=== PATIENT | male | born 2000 | race Caucasian/White ===

== ENCOUNTER 2024-02-16 15:31 | Outpatient (AMB) | payer OTHER, SELFPAY ==
--- NOTE | 2024-02-16 15:41 | A.OFFPC_ITS ---
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 He is accompanied by his , Eileen. Patient is originally from the [facility] [place]. 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 Patient reports his father had an CA age 54 this year. Patient tells me his father does not take care of his health. States his father is a smoker and type 2 diabetic who does not take his medication. Patient denies chest pain, shortness of breath. Denies other family members with history of cardiovascular disease and denies family history of sudden . Patient has yearly physicals for sports and has never been diagnosed with a heart condition. The patient is a nonsmoker. His only health concern today is a recurrent pain right hand. He has had this for a few years. 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 The pain is on the outside of the right wrist and travels up the side of the thumb. It bothers him when grasps things. He takes Tylenol which temporarily alleviate symptoms. I recommend he schedule a routine eye exam, and he is in the process of establishing dental care. Declines flu vaccine. States Tdap is UTD. He has a copy of his vaccines at home that he will get to us. ROS: Constitutional: No unexplained weight loss, fever, chills, fatigue or night sweats. Eyes: No vision changes, blurry vision, double vision, eye pain, eye redness, eye discharge. ENT: No hearing loss, sore throat or ear pain. Patient endorses nasal congestion the last few days due to a cold. Respiratory: No shortness of breath, cough or sputum production. Cardiovascular: No chest pain, chest pressure or chest discomfort. No palpitations or pedal edema. Gastrointestinal: No anorexia, nausea, vomiting or diarrhea. No abdominal pain or blood in stool. Genitourinary: No dysuria, hematuria, urinary frequency. No testicular mass reported by patient on home exam, no urethral discharge, no pain. Neurologic: No headache, dizziness, syncope, unilateral weakness, ataxia, numbness or tingling in the extremities. Musculoskeletal: see HPI Hematologic/Lymphatics: No bleeding or bruising. No painful lymph nodes. Skin: No rash or itching. Endocrine: No cold or heat intolerance. No polyuria or polydipsia. Psychiatric: No depression or anxiety. No SI/HI. Physical exam: Constitutional: Alert, in no distress. Head: Normocephalic. Eyes: Pupils are equal, round and reactive to light. Extraocular muscles intact. Ear, Nose and Throat: Canals clear. TMs normal. Normal nasal mucosa. No nasal discharge. No oral lesions. Neck: Supple, Full range of motion. No lymphadenopathy. No palpable thyroid masses. Respiratory: Clear to auscultation. Cardiovascular: S1 S2 regular. No murmurs. Gastrointestinal: Abdomen soft, non-tender, non-distended. Normal bowel sounds. No palpable masses. Genitourinary: Deferred. Neurologic: No focal neurological deficits. Symmetric patellar reflexes. Moves all extremities spontaneously. Sensation intact bilaterally. Skin: No rashes or lesions. Musculoskeletal: Wrists and hands are nontender to palpation, and there is full range of motion. There is no visible swelling of the upper extremities and no erythema or other discoloration. Extremities: Warm and well perfused. No clubbing, cyanosis or edema. 3+ peripheral pulses bilaterally. Psychiatric: Normal mood and affect [facility] Medical History (Updated 02/16/24 @ 16:17 by LILI Lott) Routine physical examination Right hand pain Screening for cardiovascular condition Surgical History (Updated 02/16/24 @ 15:44 by Esha Garzon CMA) H/O lateral meniscus repair of right knee Family History (Updated 02/16/24 @ 15:45 by Esha Garzon CMA) Father Diabetes Heart attack Paternal Grandmother Diabetes Paternal Grandfather Diabetes Social History Housing: House Alcohol intake: current Patient Tobacco Use Status: Never used Tobacco e-Cigarette/Vaping Use: Never Used Second Hand Smoke Exposure: Yes (past) Substance Use Type: Marijuana service: No Current occupational status: employed 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 1. Little interest or pleasure in doing things: not at all 2. Feeling down, depressed, or hopeless: not at all 3. Trouble falling or staying asleep, or sleeping too much: several days 4. Feeling tired or having little energy: not at all 5. Poor appetite or overeating: not at all 6. Feeling bad about yourself - or that you are a failure or have let yourself or your family down: not at all 7. Trouble concentrating on things, such as reading the newspaper or watching television: not at all 8. Moving or speaking so slowly that other people could have noticed. Or the opposite - being so fidgety or restless that you have been moving around a lot more than usual: not at all 9. Thoughts that you would be better off or of hurting yourself in some way: not at all Total score: 1 Depression Screening Interpretation: Negative Depression Screening Done: Yes 71655 - PHQ-9 Billing: Yes Source: Developed by Drs. Jeyson Trammell, Dahiana Vallecillo, Manjit Noyola and colleagues, with an educational dayan from [employer]. Thrive Questionnaire Date Thrive assessed: 02/16/24 I am a: Patient What is your living situation today?: I have a steady place to live Within the past 12 months, did the food you bought not last and you didn't have the money to get more?: Never true Within the past 12 months, did you worry whether your food would run out before you got money to buy more?: Never true Do you have trouble paying for medicines?: No Do you have trouble getting transportation to medical appointments?: No Do you have trouble paying your heating and electricity bill?: No Do you have trouble taking care of your child, family member or friend?: No Do you have trouble with day-to-day activities such as bathing, preparing meals, shopping, managing finances, etc.?: No Are you currently unemployed and looking for a job?: No Are you interested in more education?: No Please select the resources that you would like help with: None Currently or been in a relationship where the following occur: No concerns reported THRIVE Score: 0 AUDIT C Alcohol Use Questionnaire (AUDIT-C) 1. How often do you have a drink containing alcohol?: Monthly or less 2. How many drinks containing alcohol do you have on a typical day when you are drinking?: 3 or 4 3. How often do you have six or more drinks on one occasion?: Never Total Score: 2 ELMA-7 AMB Questionnaire ELMA-7 Date ELMA - 7 assessed: 02/16/24 Feeling nervous, anxious, or on edge: 0 = Not at all Not being able to stop or control worryin = Not at all Worrying too much about different things: 0 = Not at all Trouble relaxin = Not at all Being so restless that it is hard to sit still: 0 = Not at all Becoming easily annoyed or irritable: 1 = Several days Feeling afraid as if something awful might happen: 0 = Not at all Total ELMA-7 score (0-4 normal; 5-9 mild; 10-14 moderate; 15-21 severe): 1 Source: Developed by Drs. Jeyson Trammell, Dahiana Vallecillo, Manjit Noyola and colleagues, with an educational dayan from [employer]. ELMA-7 Assessment Billing ELMA-7 Assessment Tool: ELMA-7 Assessment 13648 Physical exam (Primary Care) Depression Screening Interpretation: Negative Currently or been in a relationship where the following occur: No concerns reported Coding Level of Care Code New Pt Prev Care 18-39yr(34390 Diagnoses Routine physical examination Z00.00 Right hand pain M79.641 Additional Codes ELMA-7 Assessment Billing - ELMA-7 Assessment Tool: ELMA-7 Assessment 99665 ([id number]) PHQ-9 - 09466 - PHQ-9 Billing: Yes ([id number]) Assessment & Plan Assessment & Plan (1) Routine physical examination: Code(s): Z00.00 - Encounter for general adult medical examination without abnormal findings Category: Medical (2) Right hand pain: Code(s): M79.641 - Pain in right hand Category: Medical Plan Patient is seen today for a routine physical. As part of this visit we reviewed the following issues, which are considered and essential part of preventative health in this age group: - Blood pressure screening - Cholesterol screening - Nutritional and exercise counseling - Screening for depression - Prevention of and/or testing for infectious diseases - Recommendations about immunizations - Recommendation of an eye exam - Screening for substance abuse Right hand pain Patient has done physical therapy and had recurrent symptoms had referred to specialist. He will have fasting labs completed. Return in 1 year for a physical exam. Orders: Orders Comprehensive Met. Panel Today Z13.6 - Encounter for screening for cardiovascular disorders Complete Blood Count no Diff Today Z13.6 - Encounter for screening for cardiovascular disorders Lipid Panel Today E78.5 - Hyperlipidemia, unspecified, Z13.6 - Encounter for screening for cardiovascular disorders Referrals Hand Surgery Referral M79.641 - Pain in right hand
[2024-02-16 15:45] VITALS: BP 122/82; PULSE 77; O2SAT 99; BMI 34.2
== END 2024-02-16 16:12 | disposition home or self-care (01) ==
PROVIDERS: PCP Physician Assistant Medical; Visit Provider Physician Assistant Medical
DX: Z00.00 Encounter for general adult medical examination without abnormal findings (principal); M79.641 Pain in right hand

== ENCOUNTER → 2024-02-16 15:31 | Outpatient (BNVA) | payer OTHER, SELFPAY | PROVIDERS: PCP Physician Assistant Medical; Visit Provider Physician Assistant Medical | DX: Z00.01 Encounter for general adult medical examination with abnormal findings (principal); M79.641 Pain in right hand | CPT/HCPCS: 96127 ==

== ENCOUNTER 2024-07-08 13:16 | Outpatient (AMB) | payer OTHER, SELFPAY ==
--- NOTE | 2024-07-08 13:33 | A.OFFPC_ITS ---
Vital Signs 07/08/24 13:39 Height 5 ft 8.5 in Weight 234 lb 1 oz BMI 35.1 BP 104/74 Blood Pressure Location Rt brachial Position Sitting Pulse 69 Pulse Source Pulse Oximeter Temp 97.9 F Temp Source Temporal Artery Scan Pulse Oximetry (%) 96 Oxygen Delivery Method Room Air Intake Visit Reasons: ADHD Intake Note: Vick presents in the office today for a follow up. Patient would like to discuss ADHD. Allergies No Known Allergies Allergy (Verified 07/08/24 13:37) Tobacco use date assessed: 07/08/24 Dental Screening Dental Screen Date: 07/08/24 Did you have a dental visit in the last 12 months?: No Did you have a dental problem in the last 6 months where you did not have access to dental care?: No Was dental information given to patient?: Yes HPI HPI Comments History of Present Illness Details 24-year-old male presents with his for evaluation of stress and possible ADHD. Patient says he has always struggled since he was younger, but he never sought evaluation. He grew up in the [place]. 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 Patient is currently living with his and her mother. 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 He likes to stay busy and feels like this helps. He has difficulty completing tasks. He starts tasks and does not finish them frequently. He does not feel forgetful. He did not do particularly well with school. In middle school and high school he says that he was moved through due to his language barrier. He did attend college. He endorses irritability and stress. One of the sources of stress is a 7-month-old puppy they have at home who has high energy. He tends to isolate himself when he is feeling upset because he does not want to take it out on anybody at home. He does not suffer from panic attacks, and he denies thinking about worse case scenarios, but he says he always has a backup plan because he is worried Plan A will not work. He does not feel depressed. He does not want to let his symptoms impact his marriage. He is not open to the idea of therapy currently. He does not feel like it would help him and does not believe in it. He does want to try medication to help with some of his symptoms. He notes that he was previously smoking a lot of cannabis to manage his stress and anxiety. He has decreased use, but now he is having 1 cocktail a night to help relax. He has had a couple of long distance billing operator coaches who have been good supports for him, and he talks to them about his problems. He finds it difficult to open up to new people. Patient says he sleeps okay. Sometimes he will wake up during the night and have difficulty with anxiety, but this does not happen all the time. ROS: Constitutional: No unexplained weight loss, fever, chills, fatigue or night sweats. Psychiatric: No depression, SI/HI, hallucinations. See HPI Physical exam: Constitutional: Alert, in no distress. Psychiatric: Normal mood and affect [facility] Medical History (Updated 07/08/24 @ 17:09 by LILI Lott) Anxiety Poor concentration Routine physical examination Right hand pain Screening for cardiovascular condition Surgical History (Updated 02/16/24 @ 15:44 by Esha Garzon CMA) H/O lateral meniscus repair of right knee Family History Father Diabetes Heart attack Paternal Grandmother Diabetes Paternal Grandfather Diabetes Social History (Updated 07/08/24 @ 13:38 by Anna Moses MA) Housing: House Alcohol intake: current Patient Tobacco Use Status: Never used Tobacco e-Cigarette/Vaping Use: Never Used Second Hand Smoke Exposure: Yes (past) Substance Use Type: Marijuana service: No Current occupational status: employed 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 Jeyson Trammell, Dahiana Vallecillo, Manjit Noyola and colleagues, with an educational dayan from [employer]. Physical exam (Primary Care) Vital Signs: Last Vital Signs Temp 97.9 F 07/08/24 13:39 Pulse 69 07/08/24 13:39 BP 104/74 07/08/24 13:39 Pulse Ox 96 07/08/24 13:39 Oxygen Delivery Method Room Air 07/08/24 13:39 BMI result Body Mass Index 35.1 Tobacco/Smoking Status: Tobacco use Status Tobacco use date assessed 07/08/24 07/08/24 13:38 Patient Tobacco Use Status Never used Tobacco 07/08/24 13:38 e-Cigarette/Vaping Use Never Used 07/08/24 13:38 Thrive Assessment: Date of Thrive Assessment Date Thrive assessed 02/16/24 07/08/24 13:37 Coding Level of Care Code Est Pt Level 4 (60746) Complex EM visit Add On G2211 Diagnoses Poor concentration R41.840 Anxiety F41.9 Assessment & Plan Assessment & Plan (1) Poor concentration: Code(s): R41.840 - Attention and concentration deficit Category: Medical (2) Anxiety: Code(s): F41.9 - Anxiety disorder, unspecified Category: Medical Plan Patient is not open to referral for therapy at this time though I think it could benefit him. We will discuss this again at his follow up visit. He expresses some symptoms that could be consistent with ADHD. I will refer him to Psychiatry for evaluation. He also has anxiety so he would like to try medication for this. We will start sertraline. Side effects, administration and black box warning reviewed in detail with the patient and his . They will contact me if he has any significant difficulties with the medicine. We discussed it may take 4-6 weeks to feel the full effects of the medicine. He will schedule a follow up in 6 weeks. Orders: Referrals Psychiatry Outpatient Consultation Service F41.9 - Anxiety disorder, unspecified, R41.840 - Attention and concentration deficit Medications: New sertraline Take 1/2 qhs po x 1 week and then increase to 1 tab daily. 50 mg PO DAILY 30 tabs 1RF
[2024-07-08 13:39] VITALS: BP 104/74; PULSE 69; TEMP 36.6; O2SAT 96; BMI 35.1
== END 2024-07-08 14:19 | disposition home or self-care (01) ==
LOC: HO.HMCFM 13:16
PROVIDERS: PCP Physician Assistant Medical; Visit Provider Physician Assistant Medical
DX: R41.840 Attention and concentration deficit (principal); F41.9 Anxiety disorder, unspecified

== ENCOUNTER → 2024-07-08 13:16 | Outpatient (BNVA) | payer OTHER, SELFPAY | PROVIDERS: PCP Physician Assistant Medical; Visit Provider Physician Assistant Medical ==

== ENCOUNTER 2024-07-24 09:13 | Outpatient (REF) | payer OTHER, SELFPAY ==
--- NOTE | ~2024-07-24 | MR_ITS ---
EXAMINATION: MR BRAIN WITHOUT IV CONTRAST HISTORY: R41.840 - Attention and concentration deficit TECHNIQUE: Sagittal T1, and axial T1, FLAIR, T2, gradient echo, and diffusion weighted MR images of the brain were obtained. COMPARISON: None FINDINGS: The brain parenchyma is unremarkable, demonstrating normal jackson/white differentiation. No foci of abnormal signal intensity are identified. The ventricular system is normal in size and configuration. There is no mass effect or midline shift. No intra or extra-axial fluid collections are identified. There are no foci of restricted diffusion. Normal vascular flow voids are noted in the basilar and carotid arteries. There is a polyp versus mucous retention cyst in the left maxillary sinus. MR/MR head/brain wo con IMPRESSION: Unremarkable MRI of the brain without contrast. Electronically signed by: Jeyson Johnson MD 07/26/2024 07:29 AM EDT
== END 2024-07-24 09:14 | disposition home or self-care (01) ==
LOC: HO.MRI 09:13
PROVIDERS: PCP Physician Assistant Medical; Visit Provider Physician Assistant Medical
DX: R41.840 Attention and concentration deficit (principal); R45.4 Irritability and anger; Z87.820 Personal history of traumatic brain injury
CPT/HCPCS: 70551

== ENCOUNTER → 2024-07-24 09:17 | Outpatient (BNV) | payer OTHER, SELFPAY | PROVIDERS: PCP Physician Assistant Medical; Visit Provider Radiology Diagnostic Radiology | DX: R41.840 Attention and concentration deficit (principal) | CPT/HCPCS: 70551 ==

== ENCOUNTER 2024-08-19 08:09 | Outpatient (REF) | payer OTHER, SELFPAY ==
[2024-08-19 10:12] LABS: Hematocrit 44.8 % (42.0-52.0); Hemoglobin 14.9 g/dl (14.0-18.0); Mean Corpuscular HGB Conc 33.3 g/dl (31.0-36.0); Mean Corpuscular Hemoglobin 29.6 pg (27.0-33.0); Mean Corpuscular Volume 88.9 fL (80.0-98.0); Mean Platelet Volume 10.8 fL (9.4-12.4); Platelet Count 262 X10*3/uL (160-400); Red Blood Count 5.04 X10*6/uL (4.60-5.80); White Blood Count 9.2 X10*3/uL (4.8-10.8)
[2024-08-19 10:32] LABS: Anion Gap 9 (12-20)
[2024-08-19 10:40] LABS: Alanine Aminotransferase 33 U/L (0-40); Albumin Level 4.7 g/dL (3.5-5.0); Alkaline Phosphatase 77 U/L (39-117); Aspartate Amino Transferase 33 U/L (5-37); Bilirubin Total 1.1 mg/dL (0.0-1.0); Blood Urea Nitrogen 14 mg/dL (9-16); Calcium 9.4 mg/dL (8.4-10.2); Carbon Dioxide 28 mmol/L (22-29); Chloride 107 mmol/L (96-108); Cholesterol 145 mg/dL (<200); Estimated Glomerular Filt Rate > 60; Glucose Random 92 mg/dL (60-115); HDL Cholesterol 35 mg/dL (>40); LDL Cholesterol Calculated 85 mg/dL (<100); Potassium 4.3 mmol/L (3.3-5.1); Sodium 140 mmol/L (135-145); Total Protein 7.3 g/dL (6.5-8.0); Triglycerides 128 mg/dL (<150)
== END 2024-08-19 08:10 | disposition home or self-care (01) ==
LOC: HO.HMGCLDS 08:09
PROVIDERS: PCP Physician Assistant Medical; Visit Provider Physician Assistant Medical
DX: R41.840 Attention and concentration deficit (principal); F41.9 Anxiety disorder, unspecified; Z79.899 Other long term (current) drug therapy; Z13.31 Encounter for screening for depression; E78.5 Hyperlipidemia, unspecified; Z13.6 Encounter for screening for cardiovascular disorders
CPT/HCPCS: 36415; 80053; 80061; 85027; 96127

== ENCOUNTER 2024-08-19 09:57 | Outpatient (AMB) | payer OTHER, SELFPAY ==
--- NOTE | 2024-08-19 10:01 | MHC.PC.OV ---
Vital Signs 08/19/24 10:04 Height 5 ft 8.5 in Weight 228 lb 2 oz BMI 34.2 BP 96/62 Blood Pressure Location Rt brachial Position Sitting Pulse 73 Pulse Source Pulse Oximeter Temp 98.2 F Temp Source Temporal Artery Scan Pulse Oximetry (%) 96 Oxygen Delivery Method Room Air Intake Visit Reasons: med check Intake Note: Vick presents in the office today for a medication check. Patient did his lab work this morning. Allergies No Known Allergies Allergy (Verified 08/19/24 10:04) Tobacco use date assessed: 08/19/24 Dental Screening Dental Screen Date: 07/08/24 HPI HPI Comments History of Present Illness Details 24-year-old male presents for re-evaluation of anxiety and ?ADHD. Patient is taking sertraline 50 mg daily. He noticed he was sleeping longer in the morning when he took it at night so he takes it in the morning now, and he has no difficulties with the medicine. He is not sure it is helping. He started seeing Dr. Maura Chaudhary, psychologist in [place]. Patient reports he was diagnosed with ADHD, and he will upload the report to the portal. He had another appointment this week during which they discussed coping strategies for this. He does not want to take medications for ADHD that are addictive. He thinks sertraline might have helped with focus a bit because when he went back for his follow up screening the severity score for ADHD decreased. He also reports attending 1 couples counseling session with his , but he says it was not a good fit. He continues to deny depression. ROS: Constitutional: No unexplained weight loss, fever, chills, fatigue or night sweats. Psychiatric: No depression, SI/HI, hallucinations. See HPI Physical exam: Constitutional: Alert, in no distress. Psychiatric: Normal mood and affect [facility] Medical History (Updated 07/13/24 @ 15:31 by LILI Lott) Irritability H/O multiple concussions Anxiety Poor concentration Routine physical examination Right hand pain Screening for cardiovascular condition Surgical History (Updated 02/16/24 @ 15:44 by Esha Garzon CMA) H/O lateral meniscus repair of right knee Family History Father Diabetes Heart attack Paternal Grandmother Diabetes Paternal Grandfather Diabetes Social History (Updated 08/19/24 @ 10:04 by Anna Moses MA) Housing: House Alcohol intake: current Patient Tobacco Use Status: Never used Tobacco e-Cigarette/Vaping Use: Never Used Second Hand Smoke Exposure: Yes (past) Substance Use Type: Marijuana service: No Current occupational status: employed 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 1. Little interest or pleasure in doing things: several days 2. Feeling down, depressed, or hopeless: more than half the days 3. Trouble falling or staying asleep, or sleeping too much: nearly every day 4. Feeling tired or having little energy: more than half the days 5. Poor appetite or overeating: several days 6. Feeling bad about yourself - or that you are a failure or have let yourself or your family down: several days 7. Trouble concentrating on things, such as reading the newspaper or watching television: not at all 8. Moving or speaking so slowly that other people could have noticed. Or the opposite - being so fidgety or restless that you have been moving around a lot more than usual: several days 9. Thoughts that you would be better off or of hurting yourself in some way: not at all Total score: 11 Depression Screening Interpretation: Positive Depression Screening Done: Yes 26420 - PHQ-9 Billing: Yes Source: Developed by Drs. Jeyson Trammell, Dahiana Vallecillo, Manjit Noyola and colleagues, with an educational dayan from [employer]. Thrive Questionnaire Date Thrive assessed: 08/19/24 I am a: Patient What is your living situation today?: I have a steady place to live Within the past 12 months, did the food you bought not last and you didn't have the money to get more?: Never true Within the past 12 months, did you worry whether your food would run out before you got money to buy more?: Never true Do you have trouble paying for medicines?: No Do you have trouble getting transportation to medical appointments?: No Do you have trouble paying your heating and electricity bill?: No Do you have trouble taking care of your child, family member or friend?: No Do you have trouble with day-to-day activities such as bathing, preparing meals, shopping, managing finances, etc.?: No Are you currently unemployed and looking for a job?: No Are you interested in more education?: No Please select the resources that you would like help with: None Currently or been in a relationship where the following occur: No concerns reported THRIVE Score: 0 AUDIT C Alcohol Use Questionnaire (AUDIT-C) 1. How often do you have a drink containing alcohol?: 2-4 times a month 2. How many drinks containing alcohol do you have on a typical day when you are drinking?: 1 or 2 3. How often do you have six or more drinks on one occasion?: Less than monthly Total Score: 3 Score Reviewed/Action Taken: No ELMA-7 AMB Questionnaire ELMA-7 Date ELMA - 7 assessed: 08/19/24 Feeling nervous, anxious, or on edge: 3 = Nearly every day Not being able to stop or control worryin = More than half the days Worrying too much about different things: 2 = More than half the days Trouble relaxin = Nearly every day Being so restless that it is hard to sit still: 2 = More than half the days Becoming easily annoyed or irritable: 3 = Nearly every day Feeling afraid as if something awful might happen: 2 = More than half the days Total ELMA-7 score (0-4 normal; 5-9 mild; 10-14 moderate; 15-21 severe): 17 Source: Developed by Drs. Jeyson Trammell, Dahiana Vallecillo, Manjit Noyola and colleagues, with an educational dayan from [employer]. Physical exam (Primary Care) Vital Signs: Last Vital Signs Temp 98.2 F 08/19/24 10:04 Pulse 73 08/19/24 10:04 BP 96/62 08/19/24 10:04 Pulse Ox 96 08/19/24 10:04 Oxygen Delivery Method Room Air 08/19/24 10:04 BMI result Body Mass Index 34.2 Tobacco/Smoking Status: Tobacco use Status Tobacco use date assessed 08/19/24 08/19/24 10:02 Patient Tobacco Use Status Never used Tobacco 08/19/24 10:04 e-Cigarette/Vaping Use Never Used 08/19/24 10:04 PHQ-9: PHQ-9 Score PHQ-9: Total score 11 08/19/24 10:33 Depression Screening Interpretation: Positive Thrive Assessment: Date of Thrive Assessment Date Thrive assessed 08/19/24 08/19/24 10:02 Currently or been in a relationship where the following occur: No concerns reported Coding Level of Care Code Est Pt Level 4 (85276) Complex EM visit Add On G2211 Diagnoses Poor concentration R41.840 Anxiety F41.9 Additional Codes PHQ-9 - 59274 - PHQ-9 Billing: Yes ([id number]) Assessment & Plan Assessment & Plan (1) Poor concentration: Code(s): R41.840 - Attention and concentration deficit Category: Medical (2) Anxiety: Code(s): F41.9 - Anxiety disorder, unspecified Category: Medical Plan He will upload the diagnostic report from his psychologist to the patient portal. He is not interested in treating ADHD with addictive stimulants. He would like to avoid medications for ADHD if possible. He is working on coping strategies. He is going to follow up with a psychologist. He has some underlying anxiety which we are treating with sertraline. He will increase to 100 mg a day. If he is not feeling like this helps we discussed trying to discontinue the medication and possibly try bupropion or Strattera instead. Reviewed lock box warning for SSRIs and potential side effects. He will follow up in 6 weeks. Medications: New sertraline 100 mg PO DAILY 90 tabs 0RF Discontinued sertraline Discontinued Reason: Doctor's Order 50 mg PO DAILY 30 tabs 0RF
[2024-08-19 10:04] VITALS: BP 96/62; PULSE 73; TEMP 36.8; O2SAT 96; BMI 34.2
== END 2024-08-19 10:50 | disposition home or self-care (01) ==
LOC: HO.HMCFM 09:58
PROVIDERS: PCP Physician Assistant Medical; Visit Provider Physician Assistant Medical
DX: R41.840 Attention and concentration deficit (principal); F41.9 Anxiety disorder, unspecified

== ENCOUNTER 2025-02-17 08:13 | Outpatient (AMB) | payer OTHER, SELFPAY ==
--- NOTE | 2025-02-17 08:15 | A.OFFPC_ITS ---
Vital Signs 02/17/25 08:20 Height 5 ft 8.5 in Weight 234 lb 2 oz BMI 35.1 BP 104/60 Blood Pressure Location Rt brachial Position Sitting Respiration 15 Pulse 71 Pulse Source Pulse Oximeter Temp 97.5 F Temp Source Temporal Artery Scan Pulse Oximetry (%) 96 Oxygen Delivery Method Room Air Intake Visit Reasons: physical exam Intake Note: Vick presents in the office today for his annual physical. Filing Writer Required: No Allergies No Known Allergies Allergy (Verified 02/17/25 08:18) Tobacco use date assessed: 02/17/25 Dental Screening Dental Screen Date: 02/17/25 Did you have a dental visit in the last 12 months?: No Did you have a dental problem in the last 6 months where you did not have access to dental care?: No Was dental information given to patient?: Patient declined HPI HPI Comments History of Present Illness Details 24-year-old male with a past medical his tory of anxiety presents for a physical exam. He is currently taking sertraline 100 mg daily. He did some therapy with Dr. Chaudhary in [place]. Patient says he is doing well. He is able to focus better, and he feels less overwhelmed. 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 He was seen at the hand Center for chronic right hand pain which is worse when he is holding the hockey-stick all day. He received 3 cortisone injections which provided temporary relief, but the office closed. He takes Tylenol and ibuprofen as needed which provide some relief temporarily, but he does not want to rely on these medications. Denies family history of colon cancer. Declines influenza vaccine. ROS: Constitutional: No unexplained weight loss, fever, chills, fatigue or night sweats. Eyes: No vision changes, blurry vision, double vision, eye pain, eye redness, eye discharge. ENT: No hearing loss, sneezing, congestion, runny nose or sore throat. Respiratory: No shortness of breath, cough or sputum production. Cardiovascular: No chest pain, chest pressure or chest discomfort. No palpitations or pedal edema. Gastrointestinal: No anorexia, nausea, vomiting or diarrhea. No abdominal pain or blood in stool. Genitourinary: No dysuria, hematuria, urinary frequency. Denies testicular masses, groin swelling, pain. Neurologic: No headache, dizziness, syncope, unilateral weakness, ataxia, numbness or tingling in the extremities. Musculoskeletal: See HPI Hematologic/Lymphatics: No bleeding or bruising. No painful lymph nodes. Skin: No rash Endocrine: No cold or heat intolerance. No polyuria or polydipsia. Psychiatric: Denies depression. Denies SI or HI. Physical exam: Constitutional: Alert, in no distress. Head: Normocephalic. Eyes: Pupils are equal, round and reactive to light. Extraocular muscles intact. Ear, Nose and Throat: Canals clear. TMs normal. Normal nasal mucosa. No nasal discharge. No oral lesions. Neck: Supple, Full range of motion. No lymphadenopathy. No palpable thyroid masses. Respiratory: Clear to auscultation. Cardiovascular: S1 S2 regular. No murmurs. Gastrointestinal: Abdomen soft, non-tender, non-distended. Normal bowel sounds. No palpable masses. Genitourinary: Patient deferred. He does home exams. Neurologic: No focal neurological deficits. Symmetric patellar reflexes. Moves all extremities spontaneously. Sensation intact bilaterally. Skin: No rashes Musculoskeletal: No gross deformities. Normal range of motion. No visible swelling or deformity of the hands or wrists. Tender along the radial aspect of the right wrist and thumb. Extremities: Warm and well perfused. No clubbing, cyanosis or edema. Intact peripheral pulses bilaterally. Psychiatric: Normal mood and affect [facility] Medical History (Updated 07/13/24 @ 15:31 by LILI Lott) Irritability H/O multiple concussions Anxiety Poor concentration Routine physical examination Right hand pain Screening for cardiovascular condition Surgical History (Updated 02/16/24 @ 15:44 by Esha Garzon CMA) H/O lateral meniscus repair of right knee Family History Father Diabetes Heart attack Paternal Grandmother Diabetes Paternal Grandfather Diabetes Social History (Updated 02/17/25 @ 08:20 by Anna Moses CMA) Housing: House Alcohol intake: current Patient Tobacco Use Status: Never used Tobacco e-Cigarette/Vaping Use: Never Used Second Hand Smoke Exposure: Yes (past) Substance Use Type: Marijuana service: No Current occupational status: employed 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 1. Little interest or pleasure in doing things: not at all 2. Feeling down, depressed, or hopeless: several days 3. Trouble falling or staying asleep, or sleeping too much: several days 4. Feeling tired or having little energy: several days 5. Poor appetite or overeating: not at all 6. Feeling bad about yourself - or that you are a failure or have let yourself or your family down: not at all 7. Trouble concentrating on things, such as reading the newspaper or watching television: several days 8. Moving or speaking so slowly that other people could have noticed. Or the opposite - being so fidgety or restless that you have been moving around a lot more than usual: not at all 9. Thoughts that you would be better off or of hurting yourself in some way: not at all Total score: 4 Depression Screening Interpretation: Negative Depression Screening Done: Yes 00381 - PHQ-9 Billing: Yes Source: Developed by Drs. Jeyson Trammell, Dahiana Vallecillo, Manjit Noyola and colleagues, with an educational dayan from [employer]. Thrive Questionnaire Date Thrive assessed: 02/17/25 I am a: Patient What is your living situation today?: I have a steady place to live Within the past 12 months, did the food you bought not last and you didn't have the money to get more?: Never true Within the past 12 months, did you worry whether your food would run out before you got money to buy more?: Never true Do you have trouble paying for medicines?: No Do you have trouble getting transportation to medical appointments?: No Do you have trouble paying your heating and electricity bill?: No Do you have trouble taking care of your child, family member or friend?: No Do you have trouble with day-to-day activities such as bathing, preparing meals, shopping, managing finances, etc.?: No Are you currently unemployed and looking for a job?: No Are you interested in more education?: No Please select the resources that you would like help with: None Currently or been in a relationship where the following occur: No concerns reported THRIVE Score: 0 AUDIT C Alcohol Use Questionnaire (AUDIT-C) 1. How often do you have a drink containing alcohol?: Monthly or less 2. How many drinks containing alcohol do you have on a typical day when you are drinking?: 1 or 2 3. How often do you have six or more drinks on one occasion?: Never Total Score: 1 ELMA-7 AMB Questionnaire ELMA-7 Date ELMA - 7 assessed: 02/17/25 Feeling nervous, anxious, or on edge: 2 = More than half the days Not being able to stop or control worryin = Several days Worrying too much about different things: 1 = Several days Trouble relaxin = More than half the days Being so restless that it is hard to sit still: 2 = More than half the days Becoming easily annoyed or irritable: 1 = Several days Feeling afraid as if something awful might happen: 0 = Not at all Total ELMA-7 score (0-4 normal; 5-9 mild; 10-14 moderate; 15-21 severe): 9 Source: Developed by Drs. Jeyson Trammell, Dahiana Vallecillo, Manjit Noyola and colleagues, with an educational dayan from [employer]. ELMA-7 Assessment Billing ELMA-7 Assessment Tool: ELMA-7 Assessment 31031 Physical exam (Primary Care) Vital Signs: Last Vital Signs Temp 97.5 F 02/17/25 08:20 Pulse 71 02/17/25 08:20 Resp 15 02/17/25 08:20 BP 104/60 02/17/25 08:20 Pulse Ox 96 02/17/25 08:20 Oxygen Delivery Method Room Air 02/17/25 08:20 BMI result Body Mass Index 35.1 Tobacco/Smoking Status: Tobacco use Status Tobacco use date assessed 02/17/25 02/17/25 08:22 Patient Tobacco Use Status Never used Tobacco 02/17/25 08:20 e-Cigarette/Vaping Use Never Used 02/17/25 08:20 PHQ-9: PHQ-9 Score PHQ-9: Total score 4 02/17/25 08:28 Depression Screening Interpretation: Negative Thrive Assessment: Date of Thrive Assessment Date Thrive assessed 02/17/25 02/17/25 08:28 Currently or been in a relationship where the following occur: No concerns reported Coding Level of Care Code Est Pt Prev Care 18-39y(21925) Add On Preventative Visit Only Diagnoses Routine physical examination Z00.00 Anxiety F41.9 Right hand pain M79.641 Additional Codes ELMA-7 Assessment Billing - ELMA-7 Assessment Tool: ELMA-7 Assessment 78284 ([id number]) PHQ-9 - 19906 - PHQ-9 Billing: Yes ([id number]) Assessment & Plan Assessment & Plan (1) Routine physical examination: Code(s): Z00.00 - Encounter for general adult medical examination without abnormal findings Category: Medical Plan: Patient is seen today for a routine physical. As part of this visit we reviewed the following issues, which are considered and essential part of preventative health in this age group: - Blood pressure screening - Cholesterol screening - Nutritional and exercise counseling - Counseling of injury prevention including fire prevention, smoke alarms and seat belt usage - Screening for depressions - Education about skin cancer - Recommendations about immunizations - Recommendation of an eye exam - Screening for substance abuse (2) Anxiety: Code(s): F41.9 - Anxiety disorder, unspecified Category: Medical Plan: Stable. Continue sertraline 100 mg daily. If he wants to decrease the dose eventually or stopped the medication he will contact the office for taper. Follow up in 6 months or sooner as needed. (3) Right hand pain: Code(s): M79.641 - Pain in right hand Category: Medical Plan Patient had x-rays completed at the hand center and 3 cortisone injections which provided temporary relief. He will sign a release for these records. Referred to hand surgeon. Orders: Referrals Hand Surgery Referral M79.641 - Pain in right hand Medications: Refilled sertraline 100 mg PO DAILY 90 tabs 3RF
[2025-02-17 08:20] VITALS: BP 104/60; PULSE 71; RESP 15; TEMP 36.4; O2SAT 96; BMI 35.1
== END 2025-02-17 08:54 | disposition home or self-care (01) ==
LOC: HO.HMCFM 08:13
PROVIDERS: PCP Physician Assistant Medical; Visit Provider Physician Assistant Medical
DX: Z00.00 Encounter for general adult medical examination without abnormal findings (principal); F41.9 Anxiety disorder, unspecified; M79.641 Pain in right hand

== ENCOUNTER → 2025-02-17 08:13 | Outpatient (BNVA) | payer OTHER, SELFPAY | PROVIDERS: PCP Physician Assistant Medical; Visit Provider Physician Assistant Medical | DX: Z13.31 Encounter for screening for depression (principal); Z13.39 Encounter for screening examination for other mental health and behavioral disorders | CPT/HCPCS: 96127 ==